=== PATIENT | female | born 1980 | race Caucasian/White ===

== ENCOUNTER 2019-12-27 01:04 | Emergency (ER) | payer SELFPAY ==
[~2019-12-27] VITALS: Ht 162.6 cm; Wt 65.8 kg
[2019-12-27 01:25] VITALS: BP 127/87
[2019-12-27] MEDS ORDERED: IBUPROFEN600 MG ORAL (01:49)
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
[2019-12-27 02:02] VITALS: BP 127/87
--- NOTE | 2019-12-27 02:03 | NUR ---
ED Nurse Note: Pt cleared by health care Provider for discharge. DC instructions/prescription was given and explained to pt and verbalized understanding of teachings. All medical deviecs such as ID band removed. Pt is AAO x4, ambulatory and left with all personal belongings.
--- NOTE | 2019-12-27 16:32 | Diagnostic Imaging Report ---
Indication: Trauma. Nasal trauma and pain Findings: Bilateral views of the nasal bone and a Marie' view were obtained. The examination shows no acute fracture. The paranasal sinuses as visualized appear clear. Soft tissues unremarkable. Impression: Negative nasal bone series
== END 2019-12-27 02:03 | disposition home or self-care (01) ==
LOC: EMR 01:32
DX: S00.31XA Abrasion of nose, initial encounter (principal); W22.8XXA Striking against or struck by other objects, initial encounter; Y92.89 Other specified places as the place of occurrence of the external cause; Z88.0 Allergy status to penicillin; Z88.2 Allergy status to sulfonamides; Z88.1 Allergy status to other antibiotic agents
CPT/HCPCS: 70160; 99283